=== PATIENT | female | born 1960 | race Caucasian/White ===

== ENCOUNTER → 2019-02-22 | Outpatient (CLI) | payer OTHER ==
[~2019-02-22] MED LIST: ALLO100; ASPI81CH; ATOR10 PO; CLIN300 PO; COLC.6 PO; ERGO400; HYDACE10B PO; HYDACE5 PO; MECL12.5 PO; NAPR500 PO; ZOLP5
[2019-02-22 14:49] LABS: Albumin, Blood 3.9 g/dL (3.4-5.0); Albumin/Globulin Ratio 1.1 (0.8-1.8); Bilirubin, Total 1.1 mg/dL (0.1-1.0); Bun/Creatinine Ratio 27.5 (12.0-20.0); Calcium, Blood 8.7 mg/dL (8.5-10.1); Creatinine, Blood 1.02 mg/dL (0.40-1.00); Globulin, Blood 3.5 g/dL (2.2-4.0); Potassium, Blood 4.4 mmol/L (3.5-5.5); Total Protein, Blood 7.4 g/dL (6.4-8.2)
[2019-02-22 15:21] LABS: BASOPHILS ABSOLUTE AUTO 0.06 K/mm3 (0.00-0.23); BASOPHILS PERCENT AUTO 1 % (0-2); EOSINOPHILS ABSOLUTE AUTO 0.18 K/mm3 (0.00-0.68); EOSINOPHILS PERCENT AUTO 2 % (0-6); Hemoglobin 14.4 g/dL (11.5-16.0); IMMATURE GRAN ABSOLUTE AUTO 0.06 K/mm3 (0.00-0.10); IMMATURE GRAN PERCENT AUTO 1 % (0-1); LYMPHOCYTES ABSOLUTE AUTO 4.54 K/mm3 (0.84-5.20); LYMPHOCYTES PERCENT AUTO 48 % (21-46); MONOCYTES ABSOLUTE AUTO 0.52 K/mm3 (0.16-1.47); MONOCYTES PERCENT AUTO 6 % (4-13); Mean Corpuscular HGB 31.3 pg (26.0-34.0); Mean Corpuscular HGB Conc 33.5 g/dL (31.5-36.5); Mean Corpuscular Volume 94 fL (80-100); Mean Platelet Volume 9.7 fL (9.1-12.4); NEUTROPHILS ABSOLUTE AUTO 4.07 K/mm3 (1.96-9.15); NEUTROPHILS PERCENT AUTO 43 % (41-73); Platelet Count 276 K/mm3 (150-400); RDW Standard Deviation 44.4 fL (35.1-46.3); White Blood Cell Count 9.43 K/mm3 (4.00-11.30)
== END | disposition home or self-care (01) ==
LOC: LAB EV 14:36 → LAB SHORT 14:36
PROVIDERS: Family Medicine
DX: R10.11 Right upper quadrant pain (principal)
CPT/HCPCS: 80053; 83690; 85025

== ENCOUNTER → 2019-09-28 | Outpatient (CLI) | payer OTHER | LOC: LAB SHORT 15:59 → LAB EV 15:59 | DX: N12 Tubulo-interstitial nephritis, not specified as acute or chronic (principal) | CPT/HCPCS: 87077; 87086; 87186 ==

== ENCOUNTER 2020-08-08 14:18 | Day surgery (SDC) | payer OTHER ==
[~2020-08-08] VITALS: Ht 172.7 cm; Wt 77.1 kg
[~2020-08-08 14:18] MED LIST changes: +Aspir 8181 MG PO; +CITA20 PO; +OMEP20ER PO
== END 2020-08-08 16:24 | disposition home or self-care (01) ==
LOC: ORSCSDS 14:18
PROVIDERS: Internal Medicine Gastroenterology
PROC: 0DJD8ZZ Inspection of Lower Intestinal Tract, Via Natural or Artificial Opening Endoscopic (ICD-10-PCS; principal; 2020-08-08 15:45)
DX: Z12.11 Encounter for screening for malignant neoplasm of colon (principal); Z86.010 Personal history of colon polyps; K57.30 Diverticulosis of large intestine without perforation or abscess without bleeding; K64.8 Other hemorrhoids; K21.9 Gastro-esophageal reflux disease without esophagitis; J45.909 Unspecified asthma, uncomplicated; F17.210 Nicotine dependence, cigarettes, uncomplicated; Z79.82 Long term (current) use of aspirin; Z79.899 Other long term (current) drug therapy
CPT/HCPCS: J2704; J7120

== ENCOUNTER 2022-10-13 06:57 | Day surgery (SDC) | payer OTHER ==
[~2022-10-13] VITALS: Ht 172.7 cm; Wt 71.1 kg
--- NOTE | 2022-10-13 07:45 | NUR ---
10/13/22 0745 Yola Loera IN AT 0740 VICKIE IN AT 0741 CALL LIGHT AT BEDSIDE
[2022-10-13 08:55] VITALS: BP 121/78
--- NOTE | 2022-10-13 09:38 | NUR ---
10/13/22 0938 Presley Reilly ASSESSMENTS OCCURED IN SDU. IV REMOVED INTACT. SITE WNL.
== END 2022-10-13 09:17 | disposition home or self-care (01) ==
LOC: ORSCSDS 06:57
PROVIDERS: Student in an Organized Health Care Education/Training Program
PROC: 08RJ3JZ Replacement of Right Lens with Synthetic Substitute, Percutaneous Approach (ICD-10-PCS; principal; 2022-10-13 08:30)
DX: H25.13 Age-related nuclear cataract, bilateral (principal); J44.9 Chronic obstructive pulmonary disease, unspecified; K21.9 Gastro-esophageal reflux disease without esophagitis; F17.210 Nicotine dependence, cigarettes, uncomplicated; Z79.82 Long term (current) use of aspirin; Z79.899 Other long term (current) drug therapy
CPT/HCPCS: J2250; J3010; J3301; J7040; V2632

== ENCOUNTER 2022-10-19 07:08 | Day surgery (SDC) | payer OTHER ==
[~2022-10-19] VITALS: Ht 172.7 cm; Wt 69.0 kg
--- NOTE | 2022-10-19 07:34 | NUR ---
10/19/22 0734 Citlali Naylor CALL LIGHT WITHIN REACH. TETRACAINE IN LEFT EYE AT 0730 AND PLEDGETT IN AT 0731
[2022-10-19 08:45] VITALS: BP 115/70
== END 2022-10-19 08:55 | disposition home or self-care (01) ==
LOC: ORSCSDS 07:08
PROVIDERS: Student in an Organized Health Care Education/Training Program
PROC: 08RK3JZ Replacement of Left Lens with Synthetic Substitute, Percutaneous Approach (ICD-10-PCS; principal; 2022-10-19 08:30)
DX: H25.12 Age-related nuclear cataract, left eye (principal); Z96.1 Presence of intraocular lens; K21.9 Gastro-esophageal reflux disease without esophagitis; E78.5 Hyperlipidemia, unspecified; M10.9 Gout, unspecified; G47.33 Obstructive sleep apnea (adult) (pediatric); F17.210 Nicotine dependence, cigarettes, uncomplicated; Z79.899 Other long term (current) drug therapy
CPT/HCPCS: J2250; J3010; J7040; V2632

== ENCOUNTER 2024-10-24 09:52 | Day surgery (SDC) | payer MEDICARE, OTHER ==
[~2024-10-24] VITALS: Ht 170.2 cm; Wt 65.5 kg
[~2024-10-24 09:52] MED LIST changes: +MIRTAZAPINE7.5 M1 PO
--- NOTE | 2024-10-24 11:47 | NUR ---
10/24/24 [address] FRIEDMAN, NORMAL ESOPHAGUS. UNABLE TO COMPLETE EXAM DUE TO FOOD IN STOMACH.
[2024-10-24 11:49] VITALS: BP 105/62
== END 2024-10-24 11:40 | disposition home or self-care (01) ==
LOC: ORSCSDS 09:52
PROVIDERS: Internal Medicine Gastroenterology
PROC: 0DJ08ZZ Inspection of Upper Intestinal Tract, Via Natural or Artificial Opening Endoscopic (ICD-10-PCS; principal; 2024-10-24 11:30)
DX: R13.10 Dysphagia, unspecified (principal); Z53.9 Procedure and treatment not carried out, unspecified reason; Z79.82 Long term (current) use of aspirin; Z79.899 Other long term (current) drug therapy; F17.210 Nicotine dependence, cigarettes, uncomplicated
CPT/HCPCS: J2704; J7120